=== PATIENT | female | born 1975 | race Caucasian/White ===

== ENCOUNTER 2025-05-08 08:42 | Outpatient (REF) | payer BC, SELFPAY ==
--- OUTSIDE RECORDS SUMMARY | 2025-05-08 09:31 | XMS_ITS | Encounter Summary ---
Author Organization [facility] Address [id number] [place] [id number] Care Team Providers Care Enrollment Management Director Name Role Phone Maureen Levy Primary Care Provider [phone] Reason for Visit * Reason Onset Date Comments MISSING INFORMATION 05/03/2025 Encounter Details Date Type Department Care Team ([facility] st Contact Info) Description 05/03/2025 Telephone Gastroenterology - [address] [phone] Evan Manzano MD [address] [address] MISSING INFORMATION Social History Tobacco Use Types Packs/Day Years Used Date Smoking Tobacco: Never Assessed Comments Unknown Sex and Gender Information Value Date Recorded Sex Assigned at Not on file Legal Sex Female 11:23 AM EDT Gender Identity Not on file Sexual Orientation Not on file documented as of this encounter Progress Notes * Kae Wharton - 05/03/2025 11:32 AM EDT Referral received from Maureen Levy's office for colon. Missing insurance referral--faxed req sent to pcp. Referral packet scanned in media. documented in this encounter Plan of Treatment Not on file documented as of this encounter Visit Diagnoses Not on filedocumented in this encounter Care Teams Enrollment Management Director Relationship Specialty Start Date End Date Maureen Levy PA [address] [place] [address] PCP - General 05/03/25 documented as of this encounter
--- OUTSIDE RECORDS SUMMARY | 2025-05-08 09:31 | XMS_ITS | Patient Health Record ---
Author Organization [facility] Address [address] [place] [address] Care Team Providers Care Core Fitter Name Role Phone ANDRES ZHENG Primary Care Provider Lisa Smart Unavailable [phone] Allergies Allergen (clinical drug ingredient) Drug/Non Drug Allergy documented on EMR Reaction Allergy Type Onset Date Status amoxicillin Amoxicillin Unknown Drug Allergy Act sid dicloxacillin Dicloxacillin Sodium Unknown Drug Allergy Active Ceclor Unknown Drug Allergy Active Substance with sulfonamide structure and antibacterial mechanism of action (substance) Sulfa Antibiotics Unknown Drug Allergy Active Reason For Referral No Information Medications Medication SIG (Take, Route, Frequency, Duration) Notes Start Date End Date Status Probiotic - as directed Orally Active Multi-Vitamin - 1 tablet Orally Once a day; Duration: 30 day(s) Active ZyrTEC Allergy 10 MG 1 tablet Orally Onc e a day; Duration: 30 day(s) Active Mirena (52 MG) 20 MCG/24HR Intrauterine Inserted 03/24/22 Active Plan Of Treatment Pending Test Test Name Order Date Test, Urine 10/04/2015 MAMMOGRAM, SCREENING 07/30/2015 Urinalysis 02/07/2018 Urinalysis 03/17/2021 THIN PREP,HPV,TORIBIO IF HPV+ (>29YR)(DIAG) 03/06/2019 MM Digital Mammo Screening 03/17/2021 MM Digital Mammo Screening 04/28/2022 MM Digital Mammo Screening 05/03/2023 MM Digital Mammo Screening 05/05/2024 Next Appt Details Provider Name:Lisa reddy, 05/09/2025 08:40:00 AM, [address], [address], [place], [address], Insurance Providers Payer Name Payer Address Payer Phone Subscriber Number Group Number Insured Name Patient Relationship to Insured Coverage Start Date Coverage End Date [employer] [facility] [address] [facility] [id number] JAIME LEE Self - patient is the insured Medical (General) History Medical History History ICD Code Excessive and frequent menstruation with irregular cycle N92.1 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
--- OUTSIDE RECORDS SUMMARY | 2025-05-08 09:31 | XMS_ITS | Clinical Summary ---
Author Organization [facility] Address [address] [place] [address] Phone Care Team Providers Care Explosives Operator Name Role Phone Anselmo Alanis DO Primary Care Provider [phone] Allergies Active Allergy Reactions Criticality Noted Date Comments Amoxicillin 06/27/2019 Azithromycin 06/27/2019 Cefaclor 06/27/2019 Clarithromycin 06/27/2019 Dicloxacillin 06/27/2019 Sulfa (Sulfonamide Antibiotics) 04/2019 Medications levonorgestrel (MIRENA) 20 mcg/24 hours (5 yrs) 52 mg intrauterine device Mirena 20 mcg/24 hours (5 yrs) 52 mg intrauterine device Take by intrauterine route. Active Lactobacillus acidophilus (PROBIOTIC ORAL) Take by mouth. Active levonorgestreL (MIRENA) 21 mcg/24hr (up to 8 yrs) 52 mg intrauterine device Intrauterine Active B.animalis,bifid ,infantis,long (PROBIOTIC 4X ORAL) as directed Orally Active cetirizine (ZYRTEC) 10 MG tablet 1 tablet Orally Once a day for 30 day(s) Active fluticasone propionate (FLONASE ALLERGY RELIEF) 50 mcg/actuation nasal spray 1 spray in each nostril Nasally Once a day Active loratadine (CLARITIN) 10 mg tablet 1 tablet Orally Once a day for 30 day(s) Active multivitamin per tablet 1 tablet Orally Once a day for 30 day(s) Active tretinoin (RETIN-A) 0.1 % cream 1 application to affected area in the evening to face Externally Once a day Active phenazopyridine (PYRIDIUM) 100 MG tablet Take 2 tablets (200 mg total) by mouth 3 (three) times a day as needed for pain (specific location in comments) (URINARY DISCOMFORT). 12 tablet Active Active Problems No known active problems Encounters Date Type Department Care Team Description 03/29/2025 2:00 PM EDT Office Visit [facility] [address] [address] Meagan De Anda, Silvina Lou, MATE FISHING VESSEL Acute UTI (urinary tract infection) (Primary Dx) from Last 3 Months Social History Tobacco Use Types Packs/Day Years Used Date Smoking Tobacco: Never Smokeless Tobacco: Never Tobacco Cessation:Counseling Given: Not Answered Education Answer Date Recorded Are you interested in more education? Not on yenny e 01/15/2023 Are you concerned about learning? Not on file 01/15/2023 No 01/15/2023 No 01/15/2023 Digital Access Answer Date Recorded No 02/13/2023 No 02/13/2023 Reliable internet access at home? Not on file 02/13/2023 Device with a working camera? Not on file Comments Unknown Sex and Gender Information Value Date Recorded Sex Assigned at Not on file Legal Sex Female 10:30 PM EDT Gender Identity Not on file Sexual Orientation Not on file Last Filed Vital Signs Vital Sign Reading Time Taken Comments Blood Pressure 124/82 03/29/2025 2:10 PM EDT Pulse 73 03/29/2025 2:10 PM EDT Temperature 36.9 C (98.4 F) 03/29/2025 2:10 PM EDT Respiratory Rate 18 03/29/2025 2:10 PM EDT Oxygen Saturation 97% 03/29/2025 2:10 PM EDT Inhaled Oxygen Concentration - - Weight 74.8 kg (165 lb) 04/18/2024 1:43 PM EDT p er pt Height 170.2 cm (5' 7 ) 06/27/2019 2:55 PM EDT Body Mass Index 25.84 06/27/2019 2:55 PM EDT Plan of Treatment Health Maintenance Due Date Last Done Comments DEPRESSION SCREENING 1987 HEPATITIS C SCREENING 1993 HIV ONE-TIME SCREENING (18-65 YEARS) 1993 PAP SMEAR 1996 SCREENING FOR DIABETES 2010 MAMMOGRAM 2015 COLOGUARD 2020 COLONOSCOPY 2020 COLORECTAL CANCER SCREENING 2020 FIT TEST 2020 FOBT 2020 SIGMOIDOSCOPY 2020 VIRTUAL COLONOSCOPY 2020 LIPID PANEL 05/03/2023 05/03/2018 Adult Td,Tdap Booster 09/18/2026 09/18/2016 COVID-19 VACCINE Completed 07/12/2024, 10/2021, 08/13/2021, Additional history exists SMOKING STATUS SCREENING (Once After 26 Yrs) Completed 03/29/2025 HEPATITIS A VACCINES Aged Out No long er eligible based on patient's age to complete this topic HIB VACCINES Aged Out No longer eligi ble based on patient's age to complete this topic MENINGOCOCCAL VACCINES (ACWY) Aged Out No longer eligible based on patient's age to complete this topic MENINGOCOCCAL VACCINES (B) Aged Out N o longer eligible based on patient's age to complete this topic PNEUMOCOCCAL VACCINES (0-49 years) Aged Out No longer eligible based on patient's age to complete this topic Medical Devices Not on file Procedures Procedure Name Priority Date/Time Associated Diagnosis Comments URINE CULTURE Routine 03/29/2025 3:05 PM EDT Acute UTI (urinary tract infection) POCT URINE DIPSTICK Routine 03/29/2025 2 :21 PM EDT from Last 3 Months Results * Urine Culture (03/29/2025 3:05 PM EDT) Special Requests None 03/29/2025 3:06 PM EDT [facility] Urine Culture NO GROWTH 48HRS 03/31/2025 11:00 AM EDT [facility] Urine (Urine) 03/29/2025 3:0 5 PM EDT 03/29/2025 5:23 PM EDT Comment:CLEAN CATCH~CC us Silvina Don MATE FISHING VESSEL MICROBIOLOGY - GENERAL ORDE DUSTIN Final Result [facility] [address] [place] [address] * (ABNORMAL) POCT Urine Dipstick (Automated) (03/29/2025 2:21 PM EDT) COLOR Red [facility] TURBIDITY Slightly Cloudy [facility] [place] GLUCOSE, POCT Negative Negative [facility] [place] KETONE, POCT Negative Negative [facility] [place] OCCULT BLOOD, POCT 3+(A) Negative [facility] [place] SPECIFIC GRAVITY, POCT >1.030 1.001 - 1.030 [facility] [place] ALBUMIN, POCT 1+(A) Negative [facility] [place] Bili Negative Negative [facility] [place] Urobilinogen 0.2 <1.0 [facility] [place] NITRITE, POCT Negative Negative [facility] [place] PH, POCT 7.0 5.0 - 8.0 [facility] [place] WBC SCREEN, POCT 1+(A) Negative [facility] [place] 03/29/2025 2:21 PM EDT 03/29/2025 2:23 PM EDT Meagan De Anda [employer] POINT OF CARE TEST ORDERABL ES Final Result [facility] [address] [address], [facility] [phone] from Last [address] [address] [address] [place] [address] [place] [address] Care Teams Explosives Operator Relationship Specialty Start Date End Date Anselmo Alanis DO [email or web address] PCP - General Internal Medicine 06/26/19 Additional Source Comments The information contained in this document represents components of the legal health record. It is not the complete legal health record.[facility]
[2025-05-08 13:10] LABS: MANUAL DIFF FLAG NO
[2025-05-08 13:14] LABS: Hematocrit 42.0 % (37.0-47.0); Hemoglobin 14.0 g/dl (12.0-16.0); Imm Gran Abs Auto 0.01 X10*3/uL (0.00-0.03); Imm Gran Pct Auto 0.2 % (0.0-0.4); Lymphocytes Absolute Auto 2.3 X10*3/uL (1.2-4.9); Mean Corpuscular HGB Conc 33.3 g/dl (31.0-35.0); Mean Corpuscular Hemoglobin 31.7 pg (27.0-33.0); Mean Corpuscular Volume 95.0 fL (80.0-98.0); NRBC Abs Auto 0.000 X10*3/uL (0.0-0.012); NRBC Pct Auto 0.0 /100WBC (0.0-0.2); Platelet Count 379 X10*3/uL (160-400); Red Blood Count 4.42 X10*6/uL (4.20-5.50); White Blood Count 5.6 X10*3/uL (4.8-10.8)
[2025-05-08 13:31] LABS: Alanine Aminotransferase 23 U/L (0-31); Albumin Level 4.2 g/dL (3.5-5.0); Alkaline Phosphatase 97 U/L (39-117); Anion Gap 11 (12-20); Aspartate Amino Transferase 30 U/L (5-31); Blood Urea Nitrogen 12 mg/dL (9-16); Calcium 9.2 mg/dL (8.4-10.2); Carbon Dioxide 27 mmol/L (22-29); Chloride 108 mmol/L (96-108); Cholesterol 182 mg/dL (<200); Estimated Glomerular Filt Rate > 60; HDL Cholesterol 45 mg/dL (>40); Potassium 4.3 mmol/L (3.3-5.1); Sodium 142 mmol/L (135-145); Total Protein 7.0 g/dL (6.5-8.0); Triglycerides 96 mg/dL (<150)
[2025-05-08 13:51] LABS: Hemoglobin A1C 149.6173 umol/L; Total Hemoglobin (HGBA1C) 3794.9721 umol/L
== END 2025-05-08 08:43 | disposition home or self-care (01) ==
LOC: HO.MANLDS 08:42
PROVIDERS: Visit Provider Physician Assistant
DX: Z00.00 Encounter for general adult medical examination without abnormal findings (principal); Z13.6 Encounter for screening for cardiovascular disorders; Z13.1 Encounter for screening for diabetes mellitus
CPT/HCPCS: 36415; 80053; 80061; 82306; 83036; 84443; 85025